=== PATIENT | male | born 1960 | race Caucasian/White ===

== ENCOUNTER 2023-10-13 08:06 | Outpatient (CLI) | payer OTHER, SELFPAY | END 2023-10-13 08:07 | disposition home or self-care (01) | PROVIDERS: PCP Emergency Medicine; Visit Provider Family Medicine | DX: Z00.00 Encounter for general adult medical examination without abnormal findings (principal); E11.9 Type 2 diabetes mellitus without complications; Z12.5 Encounter for screening for malignant neoplasm of prostate | CPT/HCPCS: 80053; 80061; 82043; 82570; G0103 ==